=== PATIENT | male | born 1960 | race African-American/Black ===

== ENCOUNTER 2021-01-25 17:26 | Observation (INO) ==
[2021-01-25] MEDS ORDERED: SODIUM CHLORIDE 0.9% 1,000 ML IV STA (17:45)
[2021-01-25 18:34] LABS: Basophils # 0.1 10*3/uL (0.0-0.2); Basophils % 1.4 % (0.0-0.8); Eosinophils # 0.2 10*3/uL (0.0-0.87); Eosinophils % 2.6 % (0.00-10.9); Hematocrit 38.5 VOL% (42.0-52.0); Hemoglobin 12.8 GM/DL (14.0-18.0); Immature Granulocytes % 0.4 %; Immature Granulocytes Absolute 0.03 #; Lymphocytes # 2.2 10*3/uL (1.4-4.0); Mean Corpuscular HGB Conc 33.2 GM/DL (32-36); Mean Corpuscular Volume 86.7 FL (87-102); Mean Platelet Volume 10.8 FL (9.6-12.0); Monocytes % 9.1 % (1.7-12.7); Neutrophils % 57.5 % (38.7-73.9); Platelet Count 206 T/CUMM (130-400); Red Blood Count 4.44 MC/CUMM (3.8-5.5); Red Cell Distribution Width 14.1 % (9.3-17.3); White Blood Count 7.6 T/CUMM (4-12)
[2021-01-25 18:54] LABS: Albumin 3.9 G/DL (3.4-5.0); Bilirubin,Total 0.5 MG/DL (0.2-1.0); Osmolality,Calculated 256.8 MOS/KG (273-304); Potassium 3.8 MMOL/L (3.5-5.1); Total Protein 8.1 G/DL (6.4-8.2)
[2021-01-25 19:01] LABS: Bilirubin,Urine Negative (Negative); Blood, Urine Small mg/dL (Negative); Glucose,Urine (UA) Negative (Negative); Hyaline Casts,Urine 5 /LPF (0-3); Ketones,Urine Negative (Negative); Mucus,Urine Occasional /LPF (Occasional); Nitrite,Urine Negative (Negative); Protein,Urine Negative; RBC,Urine 1 /HPF (0-4); Squamous Epithelial Cell,Urine Occasional /HPF (0-10); Urine Appearance CLEAR (Clear); Urine Color Straw (Yellow); Urine Specific Gravity 1.005 (1.001-1.035); Urine Urobilinogen < 2.0 EU/DL (0.2-1.0); WBC,Urine 1 /HPF (0-6)
[2021-01-25] MEDS ORDERED: THIAMINE INJ 100 MG, FOLIC ACID INJ 1 MG, MAGNESIUM SULF INJ 2 GM, MULTIVITAMIN INJ 10 ... IV ONE (19:10)
[2021-01-25] MEDS ORDERED: MAGNESIUM SULF RIDER 2 GM in PREMIX 1 EACH IV STA (19:54)
[2021-01-25] MEDS ORDERED: ACETAMINOPHEN 325 MG TABLET PO PRN (19:54)
[2021-01-25] MEDS ORDERED: LORazepam 2 MG/1 ML VIAL IV PRN (20:00)
[2021-01-25] MEDS: cloNIDine 0.1 MG TABLET PO SCH (22:17)
[2021-01-25] MEDS: CALCIUM CARBONATE CHEW 500 MG TABLET PO SCH (22:17)
[2021-01-26] MEDS: SODIUM CHLORIDE 0.9% 1,000 ML IV SCH ×6 (03:59→23:29)
[2021-01-26 06:11] LABS: Calcium 8.3 MG/DL (8.5-10.1); Osmolality,Calculated 266.1 MOS/KG (273-304); Potassium 4.2 MMOL/L (3.5-5.1)
[2021-01-26] MEDS: CALCIUM CARBONATE CHEW 500 MG TABLET PO SCH ×2 (09:21→20:28)
[2021-01-26] MEDS: cloNIDine 0.1 MG TABLET PO SCH (09:21)
[2021-01-26] MEDS: METOPROLOL TARTRATE 50 MG TABLET PO SCH ×2 (11:44→20:29)
[2021-01-26] MEDS: PANTOPRAZOLE 40 MG TABLET PO SCH (11:45)
[2021-01-26] MEDS: ENOXAPARIN 40 MG/0.4 ML SYRINGE SUBCUT SCH (11:45)
[2021-01-26] MEDS: hydrALAZINE 20 MG/1 ML VIAL IV PRN ×2 (12:12→20:32)
[2021-01-26] MEDS: NICOTINE 21 MG/24 HR PATCH TRANSDERM SCH (20:30)
[2021-01-27] MEDS: SODIUM CHLORIDE 0.9% 1,000 ML IV SCH ×2 (04:38→13:59)
[2021-01-27] MEDS: hydrALAZINE 20 MG/1 ML VIAL IV PRN ×2 (04:44→12:05)
[2021-01-27] MEDS: NICOTINE 21 MG/24 HR PATCH TRANSDERM SCH (09:15)
[2021-01-27] MEDS: METOPROLOL TARTRATE 50 MG TABLET PO SCH (09:15)
[2021-01-27] MEDS: CALCIUM CARBONATE CHEW 500 MG TABLET PO SCH (09:15)
[2021-01-27] MEDS: PANTOPRAZOLE 40 MG TABLET PO SCH (09:15)
[2021-01-27] MEDS ORDERED: LOSARTAN 50 MG TABLET PO SCH (10:00)
[2021-01-27] MEDS: ENOXAPARIN 40 MG/0.4 ML SYRINGE SUBCUT SCH (11:30)
[2021-01-27] MEDS ORDERED: hydrALAZINE 20 MG/1 ML VIAL IV PRN (14:01)
[2021-01-27 18:17] VITALS: BP 217/89
== END 2021-01-27 18:33 | disposition left against medical advice (07) ==
LOC: EDUNIT# → EDBD → N.ED 17:26 → N.EDINP 17:26 → SUATTDRO 19:54 → N.TELEN 20:30
PROVIDERS: ADMIT Internal Medicine; ATTEND Internal Medicine